=== PATIENT | female | born 1980 | race Caucasian/White ===

== ENCOUNTER 2018-01-24 14:11 | Emergency (ER) | payer MEDICAID ==
[2018-01-24] MEDS: traMADol 50 MG TABLET PO (15:20)
[2018-01-24] MEDS: NYSTATIN TOPICAL POWDER 15GM BOTTLE. TP (15:36)
== END 2018-01-24 15:38 | disposition home or self-care (01) ==
LOC: ER 15:38
DX: B35.3 Tinea pedis (principal)
CPT/HCPCS: 99283

== ENCOUNTER 2019-05-15 00:40 | Emergency (ER) | payer MEDICAID ==
[~2019-05-15] VITALS: Ht 152.4 cm; Wt 77.1 kg
[~2019-05-15 00:40] MED LIST: NYST15PO9 TP
[2019-05-15] MEDS ORDERED: MIDAZOLAM HCL/PF 5 MG/5 ML VIAL. ONE (01:03)
[2019-05-15] MEDS ORDERED: MIDAZOLAM HCL/PF 5 MG/5 ML VIAL. IM ONE (01:15)
[2019-05-15 02:15] VITALS: BP 138/75
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
== END 2019-05-15 03:40 | disposition home or self-care (01) ==
LOC: ER 00:40
DX: F16.129 Hallucinogen abuse with intoxication, unspecified (principal); Z88.5 Allergy status to narcotic agent; Z88.6 Allergy status to analgesic agent; Z88.8 Allergy status to other drugs, medicaments and biological substances
CPT/HCPCS: 82962; 96372; 99283; J2250

== ENCOUNTER 2021-10-01 18:30 | Emergency (ER) | payer MEDICAID ==
[2021-10-02] MEDS ORDERED: HYDR-2761 PO (00:51)
[2021-10-02] MEDS ORDERED: NAPR-514 PO (00:51)
== END 2021-10-01 18:45 | disposition left against medical advice (07) ==
LOC: ER 18:30
DX: S69.91XA Unspecified injury of right wrist, hand and finger(s), initial encounter (principal); Z53.21 Procedure and treatment not carried out due to patient leaving prior to being seen by health care provider; X58.XXXA Exposure to other specified factors, initial encounter; Y93.89 Activity, other specified; Y92.89 Other specified places as the place of occurrence of the external cause; Y99.8 Other external cause status

== ENCOUNTER 2021-10-01 22:55 | Emergency (ER) | payer MEDICAID ==
[~2021-10-01] VITALS: Ht 162.6 cm; Wt 81.8 kg
[2021-10-01] MEDS ORDERED: NAPROXEN 500 MG TABLET PO STA (23:55)
[2021-10-02] MEDS ORDERED: HYDROcodone/APAP 5/325MG 1 TAB TABLET PO ONE
--- NOTE | 2021-10-02 00:17 | RAD ---
XR FINGER(S)_RIGHT 2+VIEWS History: Reason: middle finger injury closed in garage / Spl. Instructions: / History:. Pain Technique: 3 views left third digit. Comparison: None. Findings: No dislocation. No acute fracture. Impression: 1. No acute osseous abnormality. Electronically signed by: Allan Christensen DO (10/02/2021 12:15 AM) [facility]
[2021-10-02 00:30] VITALS: BP 130/82
--- NOTE | 2021-10-02 00:47 | PHYS DOC ---
Past Medical History Past Medical History: Unknown (RANDY SCHMITT APRN) Past Surgical History: Other Additional Past Surgical Histo: UNKNOWN (RANDY SCHMITT APRN) Smoking Status: Current Every Day Smoker Alcohol Use: Occasionally Drug Use: Marijuana, Phencyclidine (RANDY SCHMITT APRN) General Adult EDM: Chief Complaint: FINGER INJURY HPI: HPI: Patient is a 40 year old female with no significant medical history presented to the ED today complaining of right middle finger injury. Patient states she was manually closing a garage door and her right middle finger got caught up in the slats. Patient is right-handed. Reports moderate pain to the finger, states the pain is constant, states pain is worse on touching it, denies anything specifically relieving the pain. (RANDY SCHMITT APRN) Review of Systems: Review of Systems: Constitutional: Denies fever or chills. [] Musculoskeletal: Reports right middle finger pain Integument: Denies rash. [] Neurologic: Denies headache, focal weakness or sensory changes. [] Psychiatric: Denies depression or anxiety. [] (RANDY SCHMITT APRN) Heart Score: C/O Chest Pain: N/A Risk Factors: Risk Factors: DM, Current or recent (<one month) smoker, HTN, HLP, family history of CAD, obesity. Risk Scores: Score 0 - 3: 2.5% MACE over next 6 weeks - Discharge Home Score 4 - 6: 20.3% MACE over next 6 weeks - Admit for Clinical Observation Score 7 - 10: 72.7% MACE over next 6 weeks - Early Invasive Strategies (RANDY SCHMITT APRN) Current Medications: Current Medications Medications (Trade) Dose Ordered Sig/Mere Start Time Stop Time Status Last Admin Dose Admin Acetaminophen/ Hydrocodone Bitart (Lortab 5/325) 2 tab 1X ONCE 10/02/21 00:00 10/02/21 00:01 DC Naproxen (Naprosyn) 500 mg 1X STAT 10/01/21 23:55 10/01/21 23:59 DC (RANDY SCHMITT [employer]) Allergies: Allergies: Allergies Coded Allergies Type Severity Reaction Last Updated Verified acetaminophen Allergy Intermediate Rash 01/24/18 Yes iodine Allergy Intermediate Rash 01/24/18 Yes oxycodone Allergy Intermediate Rash 5/6/18 Yes (RANDY SCHMITT APRN) Physical Exam: PE: Constitutional: Well developed, well nourished, no acute distress, non-toxic appearance. [] Skin: Warm, dry, no erythema, no rash. [] Back: No tenderness, no CVA tenderness. [] Extremities: Plantar aspect of the right middle finger distal end with bruising. Tip of the nail appears broken. Moderate tenderness on palpation of the right middle finger tip. Full range of motion to the right middle finger. Adequate sensation to the right middle finger. +2 right radial pulse. Cap refill less than 2 seconds right middle finger Neurologic: Alert and oriented X 3, normal motor function, normal sensory function, no focal deficits noted. [] Psychologic: Affect normal, judgement normal, mood normal. [] (RANDY SCHMITT APRN) EKG: EKG: [] (RANDY SCHMITT APRN) Radiology/Procedures: Radiology/Procedures: []PROCEDURE: FINGER(S) RIGHT XR FINGER(S)_RIGHT 2+VIEWS History: Reason: middle finger injury closed in garage / Spl. Instructions: / History:. Pain Technique: 3 views left third digit. Comparison: None. Findings: No dislocation. No acute fracture. Impression: 1. No acute osseous abnormality. Electronically signed by: Allan Christensen DO (10/02/2021 12:15 AM) [facility] DICTATED and SIGNED BY: ALLAN CHRISTENSEN DO DATE: 10/02/21 [id number] (RANDY SCHMITT APRN) Course & Med Decision Making: Course & Med Decision Making Pertinent Labs and Imaging studies reviewed. (See chart for details) This is a 40-year-old female patient presented to the ED today with right middle finger pain after her finger was caught in a garage door. Right middle finger x-rays interpreted by radiologist and negative for any acute findings. Finger splint applied to the right middle finger by the ED RN, neurovascular exam [place] is normal. Ice elevation encouraged. Follow-up with Ortho in 1 week if pain persists. (RANDY SCHMITT APRN) Dragon Disclaimer: Dragon Disclaimer: This electronic medical record was generated, in whole or in part, using a voice recognition dictation system. (RANDY SCHMITT APRN) Departure Departure Impression: Primary Impression: Finger contusion Qualified Codes: S60.031A - Contusion of right middle finger without damage to nail, initial encounter Disposition: HOME / SELF CARE / HOMELESS Condition: STABLE Referrals: NO PCP (PCP) DORITA CHURCHILL II, MD Follow-up in 1 week Patient Instructions: Contusion, [id number] Additional Instructions: You were evaluated in the emergency room for right middle finger injury, your right middle finger x-rays are negative for any acute findings. Wear the finger splint provided as tolerated. Try to ice and elevate the extremity. Follow-up with the provided specialist in 1 week if pain persist. Take the prescribed pain medicine as needed Scripts Naproxen (NAPROXEN) 500 Mg Tablet 1 TAB PO BID for pain, #14 TAB 0 Refills Prov: RANDY SCHMITT APRN 10/02/21 Hydrocodone Bit/Acetaminophen (HYDROCODONE-APAP 5-325 ) 1 Tab Tablet 1 TAB PO PRN Q6HRS PRN for PAIN, #10 TAB 0 Refills Prov: RANDY SCHMITT APRN 10/02/21 Attending Signature Attending Signature I have reviewed the PA/SOFTWARE TEST ANALYST's note and plan of care. I was available for consultation as needed during the patient's visit in the emergency department. I agree with the clinical impression, plan, and disposition. (GONZALES NEVES DO) RANDY SCHMITT APRN Oct 02, 2021 00:47 GONZALES NEVES DO Oct 02, 2021 20:26
[2021-10-02] MEDS ORDERED: HYDR-2761 PO (00:51)
[2021-10-02] MEDS ORDERED: NAPR-514 PO (00:51)
== END 2021-10-02 01:50 | disposition home or self-care (01) ==
LOC: ER 22:55
DX: S69.91XA Unspecified injury of right wrist, hand and finger(s), initial encounter (principal); F17.200 Nicotine dependence, unspecified, uncomplicated; Z88.5 Allergy status to narcotic agent; Z88.6 Allergy status to analgesic agent; Z88.8 Allergy status to other drugs, medicaments and biological substances; W23.0XXA Caught, crushed, jammed, or pinched between moving objects, initial encounter; Y93.89 Activity, other specified; Y92.89 Other specified places as the place of occurrence of the external cause; Y99.8 Other external cause status
CPT/HCPCS: 29130; 73140; 99283